=== PATIENT | male | born 1975 | race Caucasian/White ===

== ENCOUNTER 2017-01-21 12:16 | Emergency (ER) | payer OTHER ==
--- NOTE | ~2017-01-21 | EKG ---
PATIENT: J LUIS PIKE UNIT #: [id number] Ventricular Rate: 91 BPM Atrial Rate: 91 BPM P-R Interval: 146 ms QRS Duration: 84 ms Q-T Interval: 370 ms QTC Calculation(Bezet): 455 ms P [place]: 29 degrees Calculated R [place]: -17 degrees Calculated T [place]: -8 degrees Diagnosis Line: Normal sinus rhythm Diagnosis Line: Minimal voltage criteria for LVH, may be normal Diagnosis Line: variant Diagnosis Line: Borderline ECG Baseline wander Diagnosis Line: When compared with ECG of 22-SEP-2013 20:40, Diagnosis Line: ST now depressed in Inferior leads Diagnosis Line: Non-specific change in ST segment in Lateral leads Diagnosis Line: Nonspecific T wave abnormality no longer evident Diagnosis Line: in Lateral leads Diagnosis Line: Confirmed by LORRIE MORROW MD ([id number]) on 01/22/2017 Diagnosis Line: 9:41:14 AM INTERPRETING MD: ODALYS STEWART
== END 2017-01-21 14:00 | disposition home or self-care (01) ==
LOC: SED 12:16
DX: F41.9 Anxiety disorder, unspecified (principal); R00.2 Palpitations; R06.02 Shortness of breath; R53.1 Weakness; K21.9 Gastro-esophageal reflux disease without esophagitis
CPT/HCPCS: 93005; 99283